=== PATIENT | female | born 1945 | race Caucasian/White ===

== ENCOUNTER → 2022-03-24 | Outpatient (CLI) | payer MEDICARE, SELFPAY ==
[2022-03-24 15:33] LABS: CRP < 2.90 mg/L (0.0-3.0)
[2022-03-26 16:19] LABS: Endomysial Antibody IgA Negative (Negative)
[2022-03-26 20:07] LABS: Immunoglobulin A 191 mg/dL (64-422); t-Transglutaminase IgA <2 U/mL (0-3)
== END | disposition home or self-care (01) ==
LOC: MTLAB 14:01
PROVIDERS: PCP Family Medicine; Referring Provider Internal Medicine Gastroenterology; Visit Provider Internal Medicine Gastroenterology
DX: R19.7 Diarrhea, unspecified (principal)
CPT/HCPCS: 36415; 82784; 83516; 86140; 86255

== ENCOUNTER → 2022-03-25 | Outpatient (CLI) | payer MEDICARE, SELFPAY ==
[2022-03-26 20:09] LABS: Fats, Neutral Normal (.); Fats, Total Normal (.)
== END | disposition home or self-care (01) ==
LOC: LABSPEC 10:45
PROVIDERS: PCP Family Medicine; Referring Provider Internal Medicine Gastroenterology; Visit Provider Internal Medicine Gastroenterology
DX: R19.7 Diarrhea, unspecified (principal)
CPT/HCPCS: 82705

== ENCOUNTER → 2022-06-24 | Outpatient (CLI) | payer MEDICARE, SELFPAY | END | disposition home or self-care (01) | LOC: LABSPEC 10:37 | PROVIDERS: PCP Family Medicine; Referring Provider Urology; Visit Provider Urology | DX: N39.0 Urinary tract infection, site not specified (principal) | CPT/HCPCS: 87086 ==

== ENCOUNTER 2022-07-01 09:15 | Day surgery (SDC) | payer MEDICARE, SELFPAY ==
[2022-07-01] VITALS (8 sets, daily range): BP systolic 188–215; BP diastolic 59–85; PULSE 56–77; RESP 16; TEMP 36.2–37.3; O2SAT 93–100; BMI 22.9
--- NOTE | 2022-07-01 10:03 | DCINST_ITS ---
Discharge Instructions Diet Discharge Diet: No restrictions Activity Discharge Activity: Return to Normal Activity Dressing / Incision Call your doctor if you observe: Fever of 101 or Higher, Inability to urinate and Inability to have a bowel movement Follow Up Care Please Follow Up With: Minda Rosario MD When: call office for appt Test Results: Test results from this visit will be discussed in further detail at your follow- up appointment, if applicable. Discharge Plan Admission Attending Provider: Minda Rosario Primary Care Provider: Bryce Ruiz Discharge Orders/Prescriptions Prescriptions: New ondansetron HCl [ondansetron HCl] 8 mg tablet 8 mg PO Q8H PRN PRN (Reason: Nausea) 7 Days Qty: 20 0RF oxycodone-acetaminophen [Percocet] 5-325 mg tablet 1 tab PO Q8H PRN (Reason: pain) 3 Days Qty: 10 0RF cephalexin [cephalexin] 500 mg capsule 500 mg PO Q12 3 Days Qty: 6 0RF phenazopyridine [phenazopyridine] 100 mg tablet 100 mg PO TID PRN (Reason: bladder spasms) Qty: 30 0RF Continued multivitamin Tablet 1 tab PO DAILY pravastatin 40 mg tablet 40 mg PO QHS Label Comments: TAKE 1 TABLET BY MOUTH EVERY DAY AT BEDTIME levothyroxine 25 mcg Tablet 25 mcg PO DAILY erythromycin 5 mg/gram (0.5 %) ointment 1 applic EACH EYE PRN PRN (Reason: Eye Irritation) lisinopril 40 mg tablet 40 mg PO BID Label Comments: TAKE 1 TABLET BY MOUTH TWICE DAILY atenolol 50 mg tablet 50 mg PO BID Label Comments: TAKE 1 TABLET BY MOUTH TWICE DAILY cholecalciferol (vitamin D3) [Vitamin D3] 50 mcg (2,000 unit) Capsule 50 mcg PO DAILY aspirin 81 mg Capsule 81 mg PO BID Referrals / Follow Up: Bryce Ruiz MD [Primary Care Provider] - Disposition Disposition (needs filled in before D/C Order can be placed): Home, Self Care
--- NOTE | 2022-07-01 10:04 | OP.PCM_ITS ---
Report of Operation Date of Procedure: 07/01/22 Pre-Operative Diagnosis: Bladder calculus, urinary tract infections Post-Operative Diagnosis: Same Surgery/Procedure Performed:: procedure aborted due to irregular cardiac rhythm Surgeon: Minda Rosario Specimen's removed: Bladder calculus Description of Procedure: The patient is a 77-year-old female who has had issues with urinary tract infections and the sensation of incomplete bladder emptying. She was found to have a bladder calculus on both cystoscopy as well as imaging and now presents for removal under anesthesia. Informed consent was obtained. The patient was taken to the operating room and placed on the operating room table. Anesthesia monitored the head, neck, airway, IV access and vital signs throughout the case. Once she was hooked up to EKG leads, an irregular rhythm was detected. The patient denied chest pain, shortness of breath, arm and jaw pain. She did not have a known history that she could relate to us of cardiac irregularity. The case was canceled. [facility] to [facility] PACU for EKG and troponin evaluation. Upon speaking with the daughter, the patient does have a history of an irregular heart rhythm at some point but she does not know why, a doctor just told her that lots of people have them. Complications None Admit VTE Documentation VTE Present on Admission: Yes VTE Mechan Device Prophylaxis: SCD's VTE Pharm Prophylaxis ordered?: No Reason prophylaxis not ordered:: Treatment Not Indicated
[2022-07-01] MEDS: Lactated Ringers 1,000 ML 15 ML IV (10:41)
--- NOTE | 2022-07-01 11:25 | EKG12_ITS ---
Test Reason : POST OP Blood Pressure : / mmHG Vent. Rate : 066 BPM Atrial Rate : 066 BPM P-R Int : 182 ms QRS Dur : 080 ms QT Int : 420 ms P-R-T Axes : 074 -34 067 degrees QTc Int : 440 ms Sinus rhythm with Premature atrial complexes Left axis deviation Abnormal ECG Confirmed by LALIT CASTRO, FABIO ([id number]), editorial clerk SAÚL KOVACS ([id number]) on 07/03/2022 7:34:46 AM Referred By: SCHUYLER Confirmed By:FABIO COHN MD
[2022-07-01 12:05] LABS: Troponin-I HS 5 pg/mL (3.0-54.0)
[2022-07-01] MEDS: Atenolol 50 MG Tablet PO (12:28)
== END 2022-07-01 13:34 | disposition home or self-care (01) ==
LOC: SDC 09:16 → AC 09:19
PROVIDERS: Anesthesiology; PCP Family Medicine; Visit Provider Urology
PROC: 0TJB8ZZ Inspection of Bladder, Via Natural or Artificial Opening Endoscopic (ICD-10-PCS; CPT 57410; principal; 2022-07-01 10:45)
DX: N21.0 Calculus in bladder (principal); N39.0 Urinary tract infection, site not specified; I49.9 Cardiac arrhythmia, unspecified; Z53.09 Procedure and treatment not carried out because of other contraindication; I10 Essential (primary) hypertension; Z79.890 Hormone replacement therapy; Z79.899 Other long term (current) drug therapy
CPT/HCPCS: 52000; 84484; 93005; J7120

== ENCOUNTER 2022-07-15 06:47 | Day surgery (SDC) | payer MEDICARE, SELFPAY ==
[2022-07-15] VITALS (7 sets, daily range): BP systolic 105–192; BP diastolic 51–77; PULSE 55–58; RESP 16–18; TEMP 36.1–37; O2SAT 95–100; BMI 22.6
[2022-07-15] MEDS: Lactated Ringers 1,000 ML 15 ML IV (07:16)
--- NOTE | 2022-07-15 08:07 | OP.PCM_ITS ---
Report of Operation Date of Procedure: 07/15/22 Pre-Operative Diagnosis: Feeling of incomplete bladder emptying, bladder calcul us, urinary tract infection Post-Operative Diagnosis: Same Surgery/Procedure Performed:: Pelvic exam under anesthesia, cystoscopy, removal of bladder stones Description of Surgical Findings:: The patient is a 77-year-old female with difficulty voiding and findings of a calculus on imaging. He presents for cystoscopy with removal of calculus. Informed consent was obtained. Patient was taken to the operating room and placed on the operating room table. Anesthesia monitored the head, neck, airway, IV access and vital signs throughout the case. Once anesthesia was appropriate ministered, the patient was placed into dorsal lithotomy position and was prepped and draped in usual sterile fashion. A pelvic examination was then performed revealing no rectocele, stage II cystocele and vaginal atrophy. The cystoscope was then inserted through the urethra under direct visualization into the urinary bladder. There were several small, smooth bladder stones identified. The stones were grasped with grasping forceps and removed through the urethra. The bladder mucosa was visualized in its entirety. There were no areas of mass, suspicious erythema or other foreign body present. The ureteral orifices were located in the correct anatomic position. At this time the patient's bladder was emptied and the cystoscope was removed. The patient was awakened and taken to the recovery room in good condition. There were no complications during this procedure. Surgeon: Minda Rosario Type of Anesthesia: MAC Specimen's removed: Bladder calculi Grafts/Implants Used: None Complications None Admit VTE Documentation VTE Present on Admission: Yes VTE Mechan Device Prophylaxis: SCD's VTE Pharm Prophylaxis ordered?: Yes
[2022-07-15] MEDS: Cefazolin 2 GM in 0.9% Normal Saline 100 ML IV (08:11)
--- NOTE | 2022-07-15 08:12 | DCINST_ITS ---
Discharge Instructions Diet Discharge Diet: No restrictions Activity Discharge Activity: Return to Normal Activity Dressing / Incision Call your doctor if you observe: Fever of 101 or Higher, Inability to urinate and Inability to have a bowel movement Follow Up Care Please Follow Up With: Minda Rosario MD When: 1 week in the office, call for appointment Test Results: Test results from this visit will be discussed in further detail at your follow- up appointment, if applicable. Discharge Plan Admission Attending Provider: Minda Rosario Primary Care Provider: Sergei Lambert Discharge Orders/Prescriptions Prescriptions: Continued multivitamin Tablet 1 tab PO DAILY pravastatin 40 mg tablet 40 mg PO QHS Label Comments: TAKE 1 TABLET BY MOUTH EVERY DAY AT BEDTIME levothyroxine 25 mcg Tablet 25 mcg PO DAILY erythromycin 5 mg/gram (0.5 %) ointment 1 applic EACH EYE PRN PRN (Reason: Eye Irritation) lisinopril 40 mg tablet 40 mg PO BID Label Comments: TAKE 1 TABLET BY MOUTH TWICE DAILY atenolol 50 mg tablet 50 mg PO BID Label Comments: TAKE 1 TABLET BY MOUTH TWICE DAILY cholecalciferol (vitamin D3) [Vitamin D3] 50 mcg (2,000 unit) Capsule 50 mcg PO DAILY aspirin 81 mg Capsule 81 mg PO BID ondansetron HCl 8 mg tablet 8 mg PO Q8H PRN PRN (Reason: Nausea) 7 Days Qty: 20 0RF oxycodone-acetaminophen [Percocet] 5-325 mg tablet 1 tab PO Q8H PRN (Reason: pain) 3 Days Qty: 10 0RF cephalexin 500 mg capsule 500 mg PO Q12 3 Days Qty: 6 0RF phenazopyridine 100 mg tablet 100 mg PO TID PRN (Reason: bladder spasms) Qty: 30 0RF Referrals / Follow Up: Sergei Lambert DO [Primary Care Provider] - Disposition Disposition (needs filled in before D/C Order can be placed): Home, Self Care
--- NOTE | 2022-07-15 08:25 | CALC_PTH ---
PATIENT: RICHARD BALLESTEROS LOC: [facility] [place] U#:[id number] AGE/SX: 77/F ROOM: RE07/15/[address]: Dr. Minda Rosario MD : [id number] BED: DIS: 07/15/2022 SPEC #: [id number] RECD: 07/15/22 09:27 STATUS: IZA ALEJANDRO #: [id number] ZACK: 07/15/22 08:[address]: Minda Rosario DEPT: SURGICAL PATHOLOGY RECD BY: Li Dimas ENTERED: 07/15/22 09:27 SP TYPE: Calculi OTHR DR: Dr. Sergei Lambert, DO Tissues: CALCULI Procedures: Surgery Specimen Level I HEADER OPERATION: Not noted PRE-OP DIAGNOSIS: Bladder stone TISSUE SUBMITTED: Bladder stone GROSS DIAGNOSIS Fragments of stone, clinically bladder stone, submitted for analysis. SONIDO:hang 07/16/2022 COMMENT The calculus is submitted in its entirety for chemical stone analysis. The results from this study will be reported separately. GROSS DESCRIPTION Received without fixative labeled with the patient's name and designated bladder stone in saline. The specimen consists of multiple fragments of santana-brown stone that in aggregate measure 0.5 x 0.4 x 0.1 cm. The entire specimen is submitted for stone analysis. / AM:hang 07/15/2022 CPT: 32762
== END 2022-07-15 10:26 | disposition home or self-care (01) ==
LOC: SDC 06:48 → AC 06:49
PROVIDERS: Referring Provider Urology; Visit Provider Urology
PROC: 0TJB8ZZ Inspection of Bladder, Via Natural or Artificial Opening Endoscopic (ICD-10-PCS; CPT 57410; principal; 2022-07-15 08:10)
DX: N21.0 Calculus in bladder (principal); R35.1 Nocturia; R35.0 Frequency of micturition; R39.15 Urgency of urination; R39.14 Feeling of incomplete bladder emptying; N39.0 Urinary tract infection, site not specified; I10 Essential (primary) hypertension; E78.00 Pure hypercholesterolemia, unspecified; E03.9 Hypothyroidism, unspecified; Z79.82 Long term (current) use of aspirin; Z79.890 Hormone replacement therapy; Z79.899 Other long term (current) drug therapy
CPT/HCPCS: 52310; 00910; 82360; 88300; J7120; J2405

== ENCOUNTER 2022-08-01 11:47 | Emergency (ER) | payer MEDICARE, SELFPAY ==
[2022-08-01 11:47] VITALS: BP 211/87; PULSE 69; RESP 16; TEMP 35.8; O2SAT 99; BMI 22.8
[2022-08-01 12:01] VITALS: BP 198/65; PULSE 64; RESP 18; O2SAT 95
--- NOTE | 2022-08-01 12:55 | CT_ITS ---
STUDY: CT ABDOMEN AND PELVIS WITH CONTRAST REASON FOR EXAM: Female, 77 years old. abdominal pain RADIATION DOSAGE (If Supplied By Facility): CTDIvol = ( 14.71 ) mGy, DLP = ( 474.06 ) mGycm TECHNIQUE: Transaxial images were obtained from the dome of the diaphragm to the symphysis pubis without oral contrast. IV 75mL Isovue-370 was administered. Sagittal and coronal images were reconstructed. Individualized dose optimization techniques were used for this CT. COMPARISON: None. FINDINGS: The visualized lung bases are unremarkable. The visualized portions of the heart are within normal limits. Normal liver. There are surgical clips in the gallbladder fossa consistent with a prior cholecystectomy. Normal spleen. Normal pancreas. Normal bilateral adrenal glands. Normal right kidney. Normal left kidney. Normal visualized stomach. Normal small intestine. Normal colon. The appendix is visualized and appears normal. Normal abdominal aorta. Normal inferior vena cava. Normal retroperitoneum. Normal urinary bladder. Normal abdominal wall. Mild compression fractures of T12 and L1 which are likely chronic. Mild levoscoliosis with degenerative disc disease. CT/Abdomen/Pelvis W IV Cont ONLY IMPRESSION: No acute abnormality. Electronically Signed: Dez Delgado MD at 15:12 EDT ,
--- NOTE | 2022-08-01 12:59 | EDS_ITS ---
HPI HPI - GI History of Present Illness Chief Complaint: Abd Pain Detail of Chief Complaint: Abdominal pain that started 5 or 6 months ago. Informant: patient Narrative Narrative: Patient with severe abdominal pain x5 or 6 months. She has been seen by GI as well as urology as well as [employer] and primary care physician for this. Patient has been seen and admitted recently to [facility] for the same pain. They attempted to do an MRI of her abdomen this week but she could not tolerate laying flat very well so was a poor study and they saw some degenerative changes in her spine. Patient has history of prolapse of the bladder. At time she has a hard time emptying her bladder and emptying stool. Last night she had a hard time sleeping because of the pain. She has been using [place] and had been helpi ng but did not help her much yesterday. She denies fever. She is had some nausea but no vomiting. Patient also currently being treated for UTI and is on Bactrim. Patient also on prednisone currently. Prior similar symptoms: Yes PFSH PFSH Medical History (Updated 08/01/22 @ 16:[address] Rios Bustos, ) Arthritis Bladder calculus Cardiology follow-up encounter High cholesterol History of irregular heartbeat Hypertension Hypothyroid Restless legs Seizures Wears dentures Wears hearing aid Home Medications aspirin 81 mg capsule 81 mg PO BID 06/23/22 [History Last Taken Unknown] atenolol 50 mg tablet 50 mg PO BID 06/23/22 [History Last Taken Unknown] cholecalciferol (vitamin D3) 50 mcg (2,000 unit) capsule (Vitamin D3) 50 mcg PO DAILY 06/23/22 [History Last Taken Unknown] erythromycin 5 mg/gram (0.5 %) eye ointment 1 applic EACH EYE PRN PRN Eye Irritation 06/23/22 [History Last Taken Unknown] levothyroxine 25 mcg tablet 25 mcg PO DAILY 06/23/22 [History Last Taken Unknown] lisinopril 40 mg tablet 40 mg PO BID 06/23/22 [History Last Taken Unknown] multivitamin 1 tab PO DAILY 06/23/22 [History Last Taken Unknown] pravastatin 40 mg tablet 40 mg PO QHS 06/23/22 [History Last Taken Unknown] cephalexin 500 mg capsule 500 mg PO Q12 post-operative 3 days #6 CAPSULES 07/01/22 [Rx Last Taken Unknown] ondansetron HCl 8 mg tablet 8 mg PO Q8H PRN PRN Nausea 7 days #20 TABLETS 07/01/22 [Rx Last Taken Unknown] oxycodone-acetaminophen 5 mg-325 mg tablet (Percocet) 1 tab PO Q8H PRN pain 3 days #10 tabs 07/01/22 [Rx Last Taken Unknown] phenazopyridine 100 mg tablet 100 mg PO TID PRN bladder spasms #30 TABLETS 07/01/22 [Rx Last Taken Unknown] oxycodone-acetaminophen 5 mg-325 mg tablet 1 tab PO Q6H PRN PRN pain 5 days #20 TABLETS 08/01/22 [Rx Last Taken Unknown] Allergy/AdvReac Type Severity Reaction Status Date / Time No Known Allergies Allergy Verified 08/01/22 11:47 Surgical History Hx of cholecystectomy Hx of eye surgery Hx of foot surgery Hx of neck surgery Social History Smoking Status: Never smoker ROS ROS ED Review of Systems ROS Unobtainable: other Constitutional Constitutional ED: Reports lethargy; Denies chills, fever(s), sweats or weight loss Eyes Eyes: Denies blurry vision, change in vision or diplopia ENT ENT ED: Denies rhinorrhea or sore throat Cardiovascular Cardiovascular: Reports racing heartbeat; Denies chest pain, orthopnea or palpitations Respiratory/Chest Respiratory/Chest: Denies cough, dyspnea, dyspnea on exertion, orthopnea or sputum Gastrointestinal Gastrointestinal: Reports abdominal pain and nausea; Denies diarrhea or vomiting Genitourinary Genitourinary ED: Denies dysuria, hematuria or urinary frequency Musculoskeletal Musculoskeletal: Denies arthralgias, back pain, myalgias or neck pain Integumentary Denies abscess, Abrasions or rash Neurologic Neurologic: Denies headache(s) or weakness Psychiatric Psychiatric: Denies anxiety, depression or suicidal thoughts Endocrine Endocrinology: Denies polydipsia, polyphagia or polyuria Hematologic/Lymphatic Hematologic/Lymphatic: Denies easy bleeding, easy bruising or lymphadenopathy Allergic/Immunologic Allergic/Immunologic ED: Denies mouth swelling, tongue swelling or urticaria EXAM Physical Exam Const Vital Signs: 08/01/22 11:47 08/01/22 12:01 08/01/22 15:06 Temperature 96.5 F L Temperature Source Temporal Pulse Rate 69 64 55 L Respiratory Rate 16 18 18 Blood Pressure 211/87 H 198/65 H 177/59 H Blood Pressure Mean 128 109 98 Pulse Ox 99 95 95 Oxygen Delivery Method Room Air Room Air Room Air Positive well nourished and well developed General Appearance ED: well developed and NAD HEENT Reports TM's clear and moist mucous membranes normocephalic and atraumatic; Negative for trauma or tenderness Tympanic Membrane ED: Yes TM's clear Eyes PERRL and EOMs intact bilaterally General Eye ED: Negative for pale conjunctiva or scleral icterus Neck no lymphadenopathy, supple and no JVD General: Negative for tenderness Chest Wall inspection of chest normal and palpation of chest normal Chest: Negative for tenderness Resp normal respiratory effort and clear to auscultation bilaterally Effort and Inspection: Negative for respiratory distress or pain with movement Auscultation: Negative for rhonchi, wheezes or diminished lung sounds Cardio regular rate, regular rhythm, S1 normal heart sound, S2 normal heart sound and no murmurs Peripheral Pulses: pulses 2+ throughout GI normal to inspection, nondistended, normoactive bowel sounds, soft to palpation, non-tender, non-distended and no masses GI Narrative: abdominal pain on palpation of the right lower quadrant and suprapubic region. No masses palpated. Back/Spine no CVA tenderness and no thoracic nor lumbar tenderness Extremity normal to inspection General Extremety ED: Negative for edema General Extremity: Negative for edema Neuro oriented x3, CN's II-XII intact bilaterally, no sensory deficits noted and gait normal Sensorium / Orientation: awake, alert, oriented to person, oriented to place and oriented to time Motor Exam: strength 5/5 throughout and strength abnormal Psych mental status grossly normal Skin no rashes or lesions noted and no wounds MDM MDM MDM Narrative Medical decision making narrative: Patient with lower abdominal pain that has been chronic for months. Etiology is unclear. She did have a slight elevated white blood cell count but she is currently on steroids and I feel this is likely the reason. Patient's urinalysis was unremarkable. Chemistries unremarkable. Lactate was normal. CT scan of the abdomen pelvis was unremarkable. At this point initially she did have 500 cc of urine in the bladder on bladder scan however she was eventually able to void on her own. She tells me that oftentimes after she voids some of the pain does resolve. This point recommended placing a [place] catheter temporarily until she follows up with urologist again. This will be more of a comfort measure to see if some of her pain is resolved and she does not have to frequently try to go to the restroom to void. Family is all in agreement. Lab Data Attestation: I reviewed the patient's lab results. Labs: Laboratory Results - last 24 hr 08/01/22 08/01/22 08/01/22 13:15 13:15 13:15 WBC 15.5 H RBC 4.71 Hgb 13.6 Hct 43.3 MCV 91.9 MCH 28.9 MCHC 31.4 L RDW Std Deviation 40.2 RDW Coeff of Madi 12.1 Plt Count 411 MPV 9.0 Immature Gran % (Auto) 0.500 Neut % (Auto) 74.8 H Lymph % (Auto) 18.4 L Ritchie % (Auto) 5.0 Eos % (Auto) 1.0 Baso % (Auto) 0.3 Absolute Neuts (auto) 11.6 H Absolute Lymphs (auto) 2.85 Nucleated RBC % 0 Sodium 134 L Potassium 4.3 Chloride 98 Carbon Dioxide 28.0 Anion Gap 8 BUN 26 H Creatinine 1.32 H Estim Creat Clear Calc 27.78 Est GFR (MDRD) Af Amer 50 L Est GFR (MDRD) Non-Af 41 L BUN/Creatinine Ratio 19.7 Glucose 157 H Lactic Acid 1.2 Calcium 9.4 Urine Color Urine Clarity Urine pH Ur Specific [place] Urine Protein Urine Glucose (UA) Urine Ketones Urine Occult Blood Urine Nitrite Urine Bilirubin Urine Urobilinogen Ur Leukocyte Esterase Urine RBC Urine WBC Ur Squamous Epith Cells Amorphous Sediment Urine Bacteria Urine Mucus 08/01/22 15:15 WBC RBC Hgb Hct MCV MCH MCHC RDW Std Deviation RDW Coeff of Madi Plt Count MPV Immature Gran % (Auto) Neut % (Auto) Lymph % (Auto) Ritchie % (Auto) Eos % (Auto) Baso % (Auto) Absolute Neuts (auto) Absolute Lymphs (auto) Nucleated RBC % Sodium Potassium Chloride Carbon Dioxide Anion Gap BUN Creatinine Estim Creat Clear Calc Est GFR (MDRD) Af Amer Est GFR (MDRD) Non-Af BUN/Creatinine Ratio Glucose Lactic Acid Calcium Urine Color Yellow Urine Clarity Sl. Cloudy Urine pH 7.0 Ur Specific [place] 1.010 Urine Protein 15 H Urine Glucose (UA) 100 H Urine Ketones Negative Urine Occult Blood 10 H Urine Nitrite Negative Urine Bilirubin Negative Urine Urobilinogen Normal Ur Leukocyte Esterase Negative Urine RBC 0-5 SEEN Urine WBC 0-5 SEEN Ur Squamous Epith Cells 0-5 SEEN Amorphous Sediment 1+ PHOS Urine Bacteria 0 SEEN Urine Mucus 0 SEEN Radiography Diagnostic Testing: Clinical Impression(s) from Imaging Studies Abdomen/Pelvis CT 08/01/22 12:55 IMPRESSION: No acute abnormality. Electronically Signed: Dez Delgado MD at 15:12 EDT , Discharge Plan Triage Chief Complaint: Abd Pain ED Provider: Rios Bustos Dx/Rx/DC Orders Clinical Impression: Abdominal pain Instructions: ED Abdominal Pain Unkn Cause Fem Prescriptions: New oxycodone-acetaminophen [oxycodone-acetaminophen] 5-325 mg tablet 1 tab PO Q6H PRN PRN (Reason: pain) 5 Days Qty: 20 0RF No Action multivitamin Tablet 1 tab PO DAILY pravastatin 40 mg tablet 40 mg PO QHS Label Comments: TAKE 1 TABLET BY MOUTH EVERY DAY AT BEDTIME levothyroxine 25 mcg Tablet 25 mcg PO DAILY erythromycin 5 mg/gram (0.5 %) ointment 1 applic EACH EYE PRN PRN (Reason: Eye Irritation) lisinopril 40 mg tablet 40 mg PO BID Label Comments: TAKE 1 TABLET BY MOUTH TWICE DAILY atenolol 50 mg tablet 50 mg PO BID Label Comments: TAKE 1 TABLET BY MOUTH TWICE DAILY cholecalciferol (vitamin D3) [Vitamin D3] 50 mcg (2,000 unit) Capsule 50 mcg PO DAILY aspirin 81 mg Capsule 81 mg PO BID ondansetron HCl 8 mg tablet 8 mg PO Q8H PRN PRN (Reason: Nausea) 7 Days Qty: 20 0RF oxycodone-acetaminophen [Percocet] 5-325 mg tablet 1 tab PO Q8H PRN (Reason: pain) 3 Days Qty: 10 0RF cephalexin 500 mg capsule 500 mg PO Q12 3 Days Qty: 6 0RF phenazopyridine 100 mg tablet 100 mg PO TID PRN (Reason: bladder spasms) Qty: 30 0RF Primary Care Provider: Sergei Lambert Referrals: Minda Rosario MD [Med Staff - Active Staff] - 3-5 Days Sergei Lambert DO [Primary Care Provider] - Disposition Disposition: Home, Self Care
[2022-08-01] MEDS: 0.9% Normal Saline 1,000 ML 125 ML IV (13:20)
[2022-08-01] MEDS: Ondansetron 4 MG/2 ML Vial IV ×3 (13:21→15:30)
[2022-08-01] MEDS: HYDROmorphone 1 MG/ML Syringe IV (13:21)
[2022-08-01 13:29] LABS: Absolute Lymphocyte Count 2.85 X10^3/uL (0.83-4.51); Absolute Neutrophil Count 11.6 X10^3/uL (2.0-7.7); Basophil# 0.04 X10^3/uL; Basophil% 0.3 % (0-1); Eosinophil# 0.16 X10^3/uL; Hematocrit 43.3 % (37-47); Hemoglobin 13.6 g/dL (12.0-15.0); Lymphocyte # 2.85 X10^3/ul (0.83-4.51); Lymphocyte % 18.4 % (19-41); Mean Corp Hgb Conc 31.4 g/dL (32-36); Mean Corpuscular Hgb 28.9 pg (27.0-32.0); Mean Corpuscular Volume 91.9 fL (81-99); Monocyte# 0.77 X10^3/uL; NRBC Flagged by Analyzer 0 % (0-5); Neutrophil # 11.62 X10^3/uL (2.7-7.7); Neutrophil % 74.8 % (47-70); Platelet Count 411 K/mm3 (150-450); RBC Distribution Width CV 12.1 % (11.6-14.6); RBC Distribution Width SD 40.2 fl (35.1-43.9); Red Blood Count 4.71 M/mm3 (4.2-5.4); White Blood Count 15.5 K/mm3 (4.4-11.0)
[2022-08-01 13:38] LABS: Anion Gap 8 (5-15); BUN 26 mg/dL (7-18); BUN/Creat Ratio 19.7 RATIO (10-20); Calcium,Total 9.4 mg/dL (8.5-10.1); Chloride 98 mmol/L (98-107); Creatinine, Serum 1.32 mg/dL (0.55-1.02); EST Glomerular Filtration Rate 41 mL/min (>60); Est Glom Filt Rate - Afr Amer 50 mL/min (>60); Estimated Creatinine Clearance 27.78 ml/min; Glucose 157 mg/dL (74-106); Potassium 4.3 mmol/L (3.5-5.1); Sodium Level 134 mmol/L (136-145)
[2022-08-01 13:46] LABS: Lactic Acid 1.2 mmol/L (0.4-1.9)
[2022-08-01 15:06] VITALS: BP 177/59; PULSE 55; RESP 18; O2SAT 95
[2022-08-01 15:26] LABS: Bacteria 0 SEEN /hpf (None Seen); Mucous, Urine 0 SEEN /hpf (<or=2+)
[2022-08-01 15:32] LABS: Color, Urine Yellow (Yellow); Glucose, Dipstick 100 mg/dl (Normal); Ketone-Dipstick Negative (Negative); Leukocyte Esterase-Dipstick Negative /ul (Negative); Nitrite-Dipstick Negative (Negative); Occult Blood-Urine 10 /ul (Negative); Protein-Dipstick 15 mg/dl (Negative); Urine Bilirubin Dipstick Negative (Negative); Urine Clarity Sl. Cloudy (Clear); Urine Urobilinogen Normal (Normal)
[2022-08-01 15:43] LABS: Amorphous Sediment 1+ PHOS; Red Blood Cells-Urine 0-5 SEEN /hpf (0-5); Squamous Epithelial Cells - UA 0-5 SEEN /hpf (5-10); White Blood Cells 0-5 SEEN /hpf (0-5)
[2022-08-01 17:00] VITALS: BP 179/98; PULSE 57; RESP 18; O2SAT 99
--- NOTE | 2022-08-01 17:52 | ED.RN ---
Patient and family asked to wait in the waiting room for their meds to bed prescription. Pt. stated she was having pain and this RN told patient she could take one of the Percocet that was were perscribed to her. Family states that patient will be taking a pill but will not be leaving the hospital premises if it does not kick in and will want to be checked back in.
== END 2022-08-01 17:51 | disposition home or self-care (01) ==
PROVIDERS: Emergency Provider Emergency Medicine; Visit Provider Emergency Medicine
DX: R10.30 Lower abdominal pain, unspecified (principal); N39.0 Urinary tract infection, site not specified; N81.10 Cystocele, unspecified; I10 Essential (primary) hypertension; E78.00 Pure hypercholesterolemia, unspecified; E03.9 Hypothyroidism, unspecified; R11.0 Nausea; M19.90 Unspecified osteoarthritis, unspecified site; Z79.82 Long term (current) use of aspirin; Z79.890 Hormone replacement therapy; Z79.899 Other long term (current) drug therapy
CPT/HCPCS: 74177; 80048; 81001; 83605; 85025; 96361; 96374; 96375; 96376; 99282; J7030; Q9967; A4216; J2405

== ENCOUNTER 2022-10-01 14:00 | Outpatient (RCR) | payer MEDICARE, SELFPAY | END 2022-10-01 14:22 | disposition home or self-care (01) | LOC: PT 14:00 | PROVIDERS: Referring Provider Urology; Visit Provider Urology | DX: M99.05 Segmental and somatic dysfunction of pelvic region (principal) ==